=== PATIENT | male | born 1945 | race African-American/Black ===

== ENCOUNTER 2016-07-15 22:47 | Inpatient (IN) | payer MEDICARE, MEDICAID ==
[~2016-07-15] VITALS: Ht 177.8 cm; Wt 89.8 kg
--- NOTE | 2016-07-15 22:50 | NUR ---
PT ARRIVED BY PA WITH A C/O AGGRESSIVE BEHAVIOR PHYSICAL CHEMISTRY TEACHER, SPITTING ON STAFF AT SNF. 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 PT WENT TO BED #10.
[2016-07-15 23:16] LABS: EOSINOPHILS # (AUTO) 0.5 /CMM (0.0-0.7); EOSINOPHILS % (AUTO) 3.7 % (0.0-6.0); HEMATOCRIT 44 % (39-51); HEMOGLOBIN 14.7 g/dL (13.5-17.5); LYMPHOCYTES # (AUTO) 1.3 /CMM (0.8-4.8); LYMPHOCYTES % (AUTO) 9.7 % (20.0-44.0); MEAN CORPUSCULAR HEMOGLOBIN 26 PG (26.0-33.0); MEAN CORPUSCULAR HGB CONC 34 g/dl (31.0-36.0); MEAN CORPUSCULAR VOLUME 77 fL (80-96); MONOCYTES # (AUTO) 0.9 /CMM (0.1-1.30); MONOCYTES % (AUTO) 6.7 % (2.0-12.0); NEUTROPHILS % (AUTO) 79.9 % (43.0-81.0); PLATELET COUNT (AUTO) 311 /CMM (150-450); RDW COEFFICIENT OF VARIATION 15.2 (11.5-15.0); RED BLOOD CELL COUNT(AUTO) 5.65 MIL/uL (4.5-6.0); WHITE BLOOD COUNT (AUTO) 13.8 K/uL (4.3-11.0)
[2016-07-15] MEDS ORDERED: WATER FOR INJECTION,STERILE 10 ML ONE (23:25)
[2016-07-15] MEDS ORDERED: OLANZAPINE 10 MG VIAL IM ONE ×2 (23:25→23:30)
[2016-07-15 23:26] LABS: CALCIUM, SERUM 9.3 mg/dL (8.5-10.1); CARBON DIOXIDE 26 mmol/L (21-32); CHLORIDE 100 mmol/L (98-107); CREATININE 1.3 mg/dL (0.6-1.3); GFR 66 mL/min (>60); GLUCOSE 208 mg/dL (74-106); POTASSIUM 4.1 mmol/L (3.5-5.1); SODIUM SERUM 134 mmol/L (136-145); UREA NITROGEN, BLOOD 23 mg/dL (7-18)
--- NOTE | 2016-07-15 23:26 | NUR ---
URINE SAMPLE OBTAINED VIA URINAL.
--- NOTE | 2016-07-15 23:27 | NUR ---
REPORT GIVEN TO DORA JOHNSON/DION FOR JANET.
--- NOTE | 2016-07-15 23:27 | NUR ---
LABS DRAWN AND SENT TO LAB.
[2016-07-15 23:31] LABS: ALANINE AMINOTRANSFERASE 36 U/L (12-78); ALBUMIN 3.6 g/dL (3.4-5.0); ALKALINE PHOSPHATASE 108 U/L (46-116); ASPARTATE AMINOTRANSFERASE 20 U/L (15-37); BILIRUBIN,DIRECT 0.1 mg/dL (0.0-0.2); BILIRUBIN,TOTAL 0.8 mg/dL (0.2-1.0); TOTAL PROTEIN, SERUM 8.2 g/dL (6.4-8.2)
[2016-07-15] MEDS ORDERED: METF500T4 PO (23:31)
[2016-07-15] MEDS ORDERED: VALS160T24 PO (23:31)
[2016-07-15] MEDS ORDERED: ZOLP5TAB2 PO (23:31)
[2016-07-15] MEDS ORDERED: ACET325T53 PO (23:31)
[2016-07-15] MEDS ORDERED: GLUC1VIA IM (23:31)
[2016-07-15] MEDS ORDERED: GLIM2TAB2 PO (23:31)
[2016-07-15 23:35] LABS: ACETAMINOPHEN 0 ug/ml (10-30); ALCOHOL, BLOOD < 3 mg/dL (0-0); SALICYLATE 0.4 mg/dL (2.8-20.0)
[2016-07-15 23:37] LABS: APPEARANCE,URINE CLEAR (CLEAR); BILIRUBIN,URINE 1+ (NEGATIVE); BLOOD, URINE TRACE Ery/uL (NEGATIVE); COLOR,URINE YELLOW (YELLOW); KETONES,URINE NEGATIVE (NEGATIVE); LEUKOCYTE ESTERASE ,URINE NEGATIVE (NEGATIVE); NITRITE, URINE NEGATIVE (NEGATIVE); PROTEIN,URINE 2+ mg/dl (NEGATIVE); UGLUCOSE NEGATIVE (NEGATIVE)
[2016-07-15] MEDS ORDERED: FERR325T22 PO (23:37)
[2016-07-15] MEDS ORDERED: TRAM50TA2 PO (23:37)
[2016-07-15] MEDS ORDERED: BISA-79 PO (23:37)
[2016-07-15] MEDS ORDERED: MAGN2400 PO (23:37)
[2016-07-15 23:41] LABS: CANNABINOID, URINE NEGATIVE (NEGATIVE); PHENCYCLIDINE SCREEN,URINE NEGATIVE (NEGATIVE)
[2016-07-15 23:45] LABS: ADD URINE CULTURE NO; BACTERIA,URINE None seen /HPF (None Seen); RBC,URINE 0-2 /HPF (0-2); SQUAMOUS EPITHELIAL CELL,UR Rare /HPF (None Seen); WBC,URINE 0-2 /HPF (0-3)
--- NOTE | 2016-07-15 23:45 | NUR ---
GPS/RN NOTE: PATIENT ADMITTED DIRECTLY FROM [facility] FOR 5150 HOLD FOR GD. CAME TO THE UNIT AROUND 2345 ACCOMPANIED BY PARAMEDICS VIA GURNEY. PER HOLD PATIENT HAS BEEN REFUSING TREATMENT AND SHOWERS, AGGRESSIVE TO STAFF AND PEERS. THE 5150 HOLD WAS REVIEWED, AND APPEARS TO REFLECT THE PRESENTATION OF THE PATIENT. STRIKING OUT AT [facility]ERS AND STAFF AT THE FACILITY WITH HIS CANE. VERBALLY AGGRESSIVE, REFUSING TREATMENT ON HIS LEGS AND REFUSED CARE AND HAD BEEN NON COMPLIANT WITH MEDICATIONS. PATIENT IS AWAKE, ALERT, LETHARGIC, CONFUSED, RESPONDS WHEN ENGAGED. NO S/S OFR COMPLAINTS AT THIS TIME. COMFORTALE, RESPIRATION EVEN, BREATHING PATTERN NON-LABORED, WITH EQUAL RISE AND FALL OF THE CHEST. BOTH LEGS ARE SWOLLEN, +3, NON PITTING AND KEPT ELEVATED WITH PILLOWS. PATIENT IS UNDER THE PSYCHIATRIC CARE OF DR. AMRIEE AND UNDER THE MEDICAL CARE OF DR. THOMPSON. BELONGINGS WERE INVENTORIED AND CHECKED FOR CONTRABAND. ADVANCED DIRECTIVE PREFERENCE, IMMUNIZATION QUESTIONNAIRE, MED-RECON, VALUABLES WERE CHECKED IN TO SAFE. AND NECESSARY PAPERWORK COMPLETED. PATIENT BED LOCKED AND PLACED ON LOWEST POSITION. WILL CONTINUE TO MONITOR Q 15 MINS. TO MAINTAIN SAFETY.
[2016-07-15 23:46] LABS: HYALINE CASTS, URINE Few /LPF (None Seen); MUCUS,URINE Few /LPF (None Seen)
--- NOTE | 2016-07-15 23:51 | NUR ---
REPORT GIVEN TO BERENICE JOHN FOR CONTINUATION OF CARE.
[2016-07-16] MEDS ORDERED: GLUCAGON,HUMAN RECOMBINANT 1 MG/VIAL VIAL IM PRN (00:30)
[2016-07-16] MEDS ORDERED: ZOLPIDEM TARTRATE 5 MG TABLET PO PRN ×2 (00:30→01:00)
[2016-07-16] MEDS ORDERED: BISACODYL (5 MG) 5 MG TABLET.DR PO PRN (00:30)
[2016-07-16] MEDS ORDERED: TRAMADOL HCL 50 MG TABLET PO PRN ×2 (00:30)
--- NOTE | 2016-07-16 00:30 | NUR ---
PT TRANSFERED TO [facility]IA TOO.
[2016-07-16] MEDS ORDERED: MAGNESIUM HYDROXIDE 30 ML UDC PO PRN (01:00)
[2016-07-16] MEDS ORDERED: MAG HYDROX/AL HYDROX/SIMETH 30 ML UDC PO PRN (01:00)
[2016-07-16] MEDS ORDERED: ACETAMINOPHEN 325 MG TABLET PO PRN (01:00)
--- NOTE | 2016-07-16 05:58 | NUR ---
GPS/RN NOTE: PATIENT JUST WOKE UP, STARTED YELLING VERY LOUD, SCREAMING, VERRBALLY ABUSIVE, SAYING THE "F" WORD. VERY DEMANDING, REQUESTING FOR A LOT OF THINGS LIKE, DRINKS, SANDWICH, BLANKET. PATIENT VERY INSULTING, CALLING NAME, " HEY YOU LADY COME HER, WHAT'S YOUR NAME?, I NEED TO TALK TO YOUR SURGICAL SERVICES MANAGER, DO YOU HAVE AN OMBUDSMAN HERE? DO YOU KNOW WHAT OMBUDSMAN IS? " I AM NOT AN ANIMAL, I AM A HUMAN BEING." " I AM TREATED LIKE AN ANIMAL HERE." PATIENT CONTINUOUSLY YELLING, '' NURSE, NURSE NURSE, MANY TIMES" CONTINUOUSLY PRESSING HIS CALL KHAN SEVERAL TIMES. EXPLAINED TO HIM THAT HE CAN ASK FOR HIS NEEDS AND CONCERNS, SHOWED HIM HOW TO USE CALL LIGHT. PATIENT GETS SARCASTIC, " AM A DISABLED PERSON." GAVE HIM WHAT HE REQUESTED, GOWN, BLANKET. PATIENT REMAINED YELLING AND SCREAMING VERY LOUD. WILL CONTINUE TO MONITOR Q 15 MINS. TO MAINTAIN SAFETY. CHARGE NURSE AWARE OF PATIENT'S BEHAVIOR.
[2016-07-16] MEDS ORDERED: LORAZEPAM 0.5 MG TABLET ONE (06:08)
--- NOTE | 2016-07-16 06:14 | NUR ---
GPS/RN NOTE: PATIENT STILL YELLING, AGITATED, SCREAMING. VERBALLY ABUSIVE OFFERED ATIVAN 0.5 MG 1 TAB PO, PATIENT SCREAMED," F YOU AND YOUR MEDICATION."
--- NOTE | 2016-07-16 06:18 | NUR ---
GPS/RN NOTE: WHILE MERGERS AND ACQUISITIONS MANAGER ASSIGNED WAS CLEANING AND CHANGING HIS DIAPER, PATIENT STATED," COME PUT YOUR FINGER IN MY ASS."
--- NOTE | 2016-07-16 06:20 | NUR ---
GPS/RN NOTE: PATIENT REFUSED MRSA SCREEN, STATED, " F YOU."
--- NOTE | 2016-07-16 06:22 | NUR ---
GPS/RN NOTE: PATIENT FURTHER SKIN ASSESSMENT NOW, VERBALLY ABUSIVE, VERY UNCOOPERATIVE.
[2016-07-16] MEDS ORDERED: ACETAMINOPHEN 325 MG TABLET PO SCH (07:30)
[2016-07-16 07:34] LABS: CHOLESTEROL 179 mg/dL (<200); HDL CHOLESTEROL 33 mg/dL (40-60); LDL 132 mg/dL (0-99); TRIGLYCERIDES 88 mg/dL (30-150)
[2016-07-16 08:00] VITALS: BP 139/89
--- NOTE | 2016-07-16 08:00 | NUR ---
GPS/RN AM NOTES PATIENT ADMITTED DIRECTLY FROM [facility] FOR 5150 HOLD FOR GD. AGGRESSIVE TO STAFF AND PEERS. THE 5150 HOLD WAS REVIEWED, AND APPEARS TO REFLECT THE PRESENTATION OF THE PATIENT.WITH HX OF STRIKING OUT AT PEERS AND STAFF AT THE FACILITY WITH HIS CANE. VERBALLY AGGRESSIVE, REFUSING TREATMENT ON HIS LEGS AND REFUSED CARE AND HAD BEEN NON COMPLIANT WITH MEDICATIONS. PATIENT IS AWAKE, ALERT, LETHARGIC, CONFUSED, RESPONDS WHEN ENGAGED BUT CUSSES A LOT.EXPRESSES HIS FRUSTRATIONS.ATTENTION SEEKER .ACTIVE LISTENING PROVIDED SEVERAL TIMES. NO S/S OF COMPLAINTS AT THIS TIME. COMFORTABLE, RESPIRATION EVEN, BREATHING PATTERN NON-LABORED, WITH EQUAL RISE AND FALL OF THE CHEST. BOTH LEGS ARE SWOLLEN, +3, NON PITTING AND KEPT ELEVATED WITH PILLOWS.ENCOURAGED TO TURN EVERY TWO HRS BUT PT IS NON COMPLIANT WITH MEDS AND BEING TURNED INSPITE OF EXPLAINING ITS RISKS AND BENEFITS.
--- NOTE | 2016-07-16 08:30 | NUR ---
PT REFUSED HIS ORAL MEDS INSPITE OF EXPLAINING ITS RISKS AND BENEFITS.PT CUSSES AND WANTED TO SEE THE PLATE ROLLERMYRNA INSTRUMENT LENS INSPECTOR,TOP DAIRY CATTLE FARM MANAGER OF THE HOSPITAL,ABRAHANRN,ADMISSIONS ASSISTANT (EVEN IF I ALREADY HAVE INTRODUCED MYSELF TO HIM).
[2016-07-16] MEDS: GLIMEPIRIDE 1 MG TABLET PO SCH ×2 (08:57→09:00)
[2016-07-16] MEDS: METFORMIN 500 MG TABLET PO SCH ×3 (08:58→16:54)
[2016-07-16] MEDS: LORAZEPAM 0.5 MG TABLET PO PRN ×2 (08:58→10:18)
[2016-07-16] MEDS: VALSARTAN 80 MG TABLET PO SCH ×2 (08:58→09:00)
[2016-07-16] MEDS ORDERED: FERROUS GLUCONATE 1 EA TABLET PO SCH (09:00)
[2016-07-16] MEDS ORDERED: OLANZAPINE 10 MG VIAL IM ONE (13:00)
--- NOTE | 2016-07-16 13:00 | NUR ---
GPS RN: PATIENT IS VERBALLY ABUSIVE, AGITATED, UNCOOPERATIVE, YELLING PROFANITIES, NAKED, THREATENING THE PHYSICIAN. NEW ORDER RECEIVED FROM DR. MARIEE: ZYPREXA 5MG IM ONCE.
--- NOTE | 2016-07-16 13:30 | NUR ---
TRIED TO CALL PT'S FAMILY,BHUPENDRA VEE 3 ATTEMPTS BUT TO NO AVAIL.
--- NOTE | 2016-07-16 14:00 | NUR ---
PT WOKE UP AGITATED,IRRITABLE THROWING HIS SHEET ON THE FLOOR ANS STARTED CUSSING WHEN IT WAS PICKED UP.EXPLAINED AND TRIED TO CLEAN UP PT'S TRASH IN HIS BED AND PT STARTED CUSSING AGAIN.CALLED FOR ASSISTANCE WITH MIC,GPS ELECTRONIC IMAGING SYSTEM OPERATOR AND OTHER STAFF TO TALK TO THE PT.
--- NOTE | 2016-07-16 14:39 | NUR ---
SW attempted to do an assessment with the patient but pt. is verbally aggressive and is cursing. SW is unable to do an assessment at this time. Will attempt again later.
--- NOTE | 2016-07-16 14:42 | NUR ---
Initial discharge plan: [facility] [address] [place] [id number] and per GG from [facility] intake, facility signed a letter agreeing to take the patient back. SW contacted the facility and per Albert from admission pt. is able to return. CYRUS will follow up with MD and pt. and will help form safe and proper discharge.
--- NOTE | 2016-07-16 16:00 | NUR ---
PT CONTINUES TO CALL STAFF WITH BAD NAMES E.G. PORKY PIG AND EVEN MAKES FALSE ACCUSATIONS LIKE POINTING BAD FINGER TO HIM AND TELLING HIM LIES.MIC,GPS ACTIVITY THERAPIST TRIED TO TALK TO THE PT TO PACIFY THE PT BUT PT CONTINUES TO BE IRRITABLE AND AGITATED CUSSING THE STAFF. Addendum: 07/16/16 at 1842 by JOHANNA IRELAND RN PT CONTINUES TO BE VERBALLY ABUSIVE,THREATENING STAFF,FALSELY ACCUSED STAFF,SCREAMING AND CURSING STAFF.WAS ABLE TO ADMINISTER ZYPREXA 5 MG IM.
--- NOTE | 2016-07-16 17:00 | NUR ---
PT IS CALMLY SLEEPING WITH NO S/S OF DISTRESS OR DISCOMFORT.WILL CONTINUE TO MONITOR.
--- NOTE | 2016-07-16 18:30 | NUR ---
PT WAS CALLING FOR HELP AND WHEN ATTENDED TO-PT WAS CUSSING,"YOU F------ BITCH!" CONTINUOUSLY WITHOUT TELLING THE UNDERSIGNED WHAT HE NEEDS,APPROACHED BY CHARGE NURSE AND PLACED HIS DINNER TRAY IN FRONT OF THE PT.PT CONTINUED TO CUSS,"YOU F----- BITCH!"LEFT THE ROOM AND WILL MONITOR.
[2016-07-16] MEDS ORDERED: LORAZEPAM 0.5 MG TABLET PO PRN (19:00)
[2016-07-16] MEDS: OLANZAPINE 5 MG/TAB.RAPDIS PO SCH (21:00)
--- NOTE | 2016-07-16 22:02 | NUR ---
GPS/LINE SERVICE SUPERVISOR NOTES: PT. REFUSED VITAL SIGNS AND HS MEDS. OFFERED 3X. EXPLAINED RISK AND BENEFITS. PT. STILL REFUSED. WILL CONTINUE TO MONITOR.
[2016-07-17 08:47] VITALS: BP 138/80
[2016-07-17] MEDS: VALSARTAN 80 MG TABLET PO SCH (08:54)
[2016-07-17] MEDS: METFORMIN 500 MG TABLET PO SCH ×2 (08:54→17:00)
[2016-07-17] MEDS: FERROUS SULFATE (325 MG) 325 MG/TAB TABLET PO SCH (08:54)
[2016-07-17] MEDS: GLIMEPIRIDE 1 MG TABLET PO SCH (08:54)
[2016-07-17] MEDS: OLANZAPINE 5 MG/TAB.RAPDIS PO SCH ×2 (08:55→21:00)
--- NOTE | 2016-07-17 08:55 | NUR ---
GPS/RN PT. REFUSED AM MEDS AND BLOOD DRAW. OFFERED 3X. EXPLAINED RISK AND BENEFITS. PT. STILL REFUSED. WILL CONTINUE TO MONITOR.
--- NOTE | 2016-07-17 09:55 | NUR ---
RN-CO: Dr. Navarro seen and examined patient in his room with 2 staff. Patient was naked and refused to cover himself. Patient yelled and cussed Dr Navarro and the staff. " SON of a b%*%#.!" Charge nurse offered to give Ativan po but he refused. Dr Navarro ordered Zyprexa 10 mg IM STAT. Patient remained agitated for no reason.
[2016-07-17] MEDS ORDERED: OLANZAPINE 10 MG VIAL IM STA (10:00)
--- NOTE | 2016-07-17 10:15 | NUR ---
RN-CO: ZYPREXA 10 MG IM GIVEN ON LEFT DELTOID AREA. PER PATIENT PREFERENCE.WILL MONITOR. PATIENT REFUSED VITAL SIGNS, AND FOOD AND FLUIDS.
--- NOTE | 2016-07-17 13:34 | NUR ---
Recreation Therapy Note: Pt. has minimal participation in activity program. Patient talks 1:1 with Recreation therapy about his college fraternity, black history, and civil rights interests. Patient regularly uses profanity, and interrupts staff when they try to perform regular check-ups (i.e. vital signs, rounds). RTC has sought to do reality orientation, and calm patient through discussion of his leisure interests. Pt. has been verbally abusive to nursing staff and medical center director.
[2016-07-17 16:28] VITALS: BP 129/77
--- NOTE | 2016-07-17 19:30 | NUR ---
PS RN NOTE, RECEIVED PATIENT AWAKE AND IN BED, NO S/S OR COMPLAINTS OF PAIN AT THIS TIME. PATIENT IS DISPLAYING NO S/S OF APPARENT DISTRESS AT THIS TIME. PATIENT BREATHING IS UNLABORED WITH EQUAL RISE AND FALL OF THE CHEST. PATIENT IS ALERT AND ORIENTED X 2 ON ROOM AIR WITH A SPO2 93%. PATIENT COMPLIANT WITH MEDICATIONS, ANXIOUS, HYPERVERBAL, DISORGANIZED, CONFUSED AT TIMES, AND NEEDS REORIENTATION. PATIENT DENIES SUICIDE AND HOMICIDAL IDEATIONS AT THIS TIME. PATIENT ASSISTED WITH TURNING AND REPOSITIONING Q2HR AND PRN FOR COMFORT AND CIRCULATION. PATIENT HAS NO NEEDS AT THIS TIME. PATIENT REFUSED SKIN ASSESSMENT TODAY. PATIENT EDUCATED ON THE USE OF THE CALL KHAN. PATIENT BED SIDE RAILS UP X2 FOR SAFETY, BED IS LOCKED AND LOW WILL CONTINUE TO MONITOR AND MAINTAIN SAFETY.
[2016-07-17 20:17] VITALS: BP 167/101
--- NOTE | 2016-07-17 21:00 | NUR ---
GPS RN NOTE, PATIENT REFUSED TO TAKE ZYPREXA 5MG PO Q12HR. OFFERED MEDICATION THREE TIMES AND STILL PATIENT REFUSED STATING, " I DON'T TAKE THOSE FUCKING MEDICATIONS AND I HAVE NEVER TAKEN THOSE MEDICATIONS BEFORE ". EDUCATED THE PATIENT ON THE RISKS AND BENEFITS OF TAKING AND REFUSING AFOREMENTIONED MEDICATION. WILL CONTINUE TO MONITOR THIS PATIENT.
--- NOTE | 2016-07-18 06:00 | NUR ---
RN NOTE PT REFUSED TO BE CLEANED DESPITE ENCOURAGEMENT AND TEACHING
[2016-07-18 08:32] VITALS: BP 150/98
[2016-07-18] MEDS: GLIMEPIRIDE 1 MG TABLET PO SCH (09:00)
[2016-07-18] MEDS: METFORMIN 500 MG TABLET PO SCH ×2 (09:00→17:00)
[2016-07-18] MEDS: OLANZAPINE 5 MG/TAB.RAPDIS PO SCH ×3 (09:00→17:00)
[2016-07-18] MEDS: FERROUS SULFATE (325 MG) 325 MG/TAB TABLET PO SCH (09:00)
[2016-07-18] MEDS: VALSARTAN 80 MG TABLET PO SCH (09:00)
[2016-07-18 16:04] VITALS: BP 152/100
--- NOTE | 2016-07-18 18:21 | NUR ---
PATIENT A/O X2/3, CONFUSED, DEMANDING, REFUSED 0900, 1700 MEDICATION, V/S TAKEN STABLE, VERBALLY ABUSIVE, HARD TO FOLLOW DIRECTION, PATIENT CONCENTRATED GOING HOME, CONTINUED MONITORING. ENDORSED ONCOMING NURSE FOR CONTINUATION OF CARE.
[2016-07-18 19:59] VITALS: BP 151/100
[2016-07-19 08:00] VITALS: BP 139/91
[2016-07-19] MEDS: METFORMIN 500 MG TABLET PO SCH ×2 (09:00→17:00)
[2016-07-19] MEDS: OLANZAPINE 5 MG/TAB.RAPDIS PO SCH ×3 (09:00→17:00)
[2016-07-19] MEDS: GLIMEPIRIDE 1 MG TABLET PO SCH (09:00)
[2016-07-19] MEDS: VALSARTAN 80 MG TABLET PO SCH (09:00)
[2016-07-19] MEDS: FERROUS SULFATE (325 MG) 325 MG/TAB TABLET PO SCH (09:00)
[2016-07-19 16:00] VITALS: BP 143/87
--- NOTE | 2016-07-19 20:00 | NUR ---
GPS OPENING NOTES RECEIVED Pt AWAKE, RESTING IN BED.REFUSING TO TAKE ANY MEDS. NO S/S OF ACUTE DISTRESS OR SOB NOTED. Pt BREATHING IS UNLABORED WITH EQUAL RISE AND FALL OF THE CHEST. NO SIGNS OF PAIN NOTED AT THIS TIME. Pt IS A/OX2, CONFUSED, VERBAL, ABLE TO MAKE NEEDS KNOWN. SAFETY MEASURES IN PLACE. BED LOW, LOCKED, HOB ELEVATED, & SIDE RAILS UP. WILL CONTINUE TO MONITOR Pt THROUGHOUT THE NIGHT AND MAINTAIN SAFETY.
[2016-07-19 20:14] VITALS: BP 132/89
--- NOTE | 2016-07-19 20:50 | NUR ---
PT REFUSING MEDS.
--- NOTE | 2016-07-20 06:55 | NUR ---
RN CLOSING NOTES NO SIGNIFICANT CHANGES. NO S/S OF ACUTE DISTRESS OR SOB NOTED DURING THE NIGHT. ALL SAFETY MEASURES CARRIED OUT. ALL NEEDS MET AND ATTENDED TO. WILL ENDORSE TO DAYSHIFT RN FOR Pt's JANET.
[2016-07-20 08:00] VITALS: BP 124/74
[2016-07-20] MEDS: VALSARTAN 80 MG TABLET PO SCH (09:00)
[2016-07-20] MEDS: METFORMIN 500 MG TABLET PO SCH ×2 (09:00→17:00)
[2016-07-20] MEDS: GLIMEPIRIDE 1 MG TABLET PO SCH (09:00)
[2016-07-20] MEDS: FERROUS SULFATE (325 MG) 325 MG/TAB TABLET PO SCH (09:00)
[2016-07-20] MEDS: OLANZAPINE 5 MG/TAB.RAPDIS PO SCH ×3 (09:00→17:00)
--- NOTE | 2016-07-20 10:22 | NUR ---
RN-CO: PT REFUSED MRSA SWAB, BECAME VERBALLY ABUSIVE AND CURSED THE STAFF"BITCH!"
--- NOTE | 2016-07-20 15:11 | NUR ---
CYRUS received a voicemail from Shira from [facility] [address], [place], [place] [id number] who was concerned as pt. called and told her he will be going there to pickling operator his stuff. CYRUS called Shira back and reassured her that pt. is not ready for discharge and will not be discharged there without a notice.
--- NOTE | 2016-07-20 15:12 | NUR ---
SW received a voicemail from pt's sister, Marilu Arredondo, , who stated that pt. requested money from her but she was unable to understand most of the voicemail left by the patient. SW attempted to call the sister back, but unable to reach her at this time. Will try again later.
[2016-07-20] MEDS ORDERED: OLANZAPINE 10 MG VIAL IM ONE (15:35)
--- NOTE | 2016-07-20 16:47 | NUR ---
PATIENT RECEIVED CHEMICAL RESTRAINT DUE TO POSING DANGER TO OTHERS BY BEING AGITATED AND AGGRESSIVE WITH HIGH POTENTIAL FOR VIOLENCE WITH THREATING STAFF PHYSICAL HARM TO ENVIRONMENT BY THROWING URINAL FILLED WITH URINE AND THE FOOD TRAY. PATIENT REFUSED P.O. ATIVAN. CALLED MD FOR ZYPREXA 10MG IM STAT TIMES ONE WITH GOOD EFFECT AFTER 10 MINUTES, PATIENT ON Q 15 MINUTE CHECK. CONTINUE TO MONITOR.
--- NOTE | 2016-07-20 19:20 | NUR ---
RN OPENING NOTES: PATIENT IN ROOM IN BED AWAKE, INCESSANTLY SHOUTING AND BANGING HAND ON HIS SIDE RAIL CALLING OUT VULGAR PROFANITIES AND VERBALLY AGGRESSIVE TOWARD STAFF. UNABLE TO REDIRECT BEHAVIOR. PATIENT REFUSES CARE AND TREATMENT AND IS COMBATIVE IF ATTEMPTED. NO ACTIVE PLANS OF SI/HI AND WITH WEAKNESS ON LOWER EXTREMITIES. SAFETY CHECKS DONE Q15. TO ATTEMPT TO RENDER SKIN CARE. MONITORED FOR ESCALATION OF BEHAVIOR.
[2016-07-20 19:48] VITALS: BP 154/90
--- NOTE | 2016-07-20 21:50 | NUR ---
RN NOTES: PATIENT HAS BEEN PERSISTENTLY VERBALLY AGGRESSIVE AND DISRUPTIVE. PATIENT CONTINUED TO SHOUT INCESSANTLY, BANGS ON THE SIDERAILS AND SCREAMS VULGAR AND INAPPROPRIATE COMMENTS. PATIENT REFUSES CARE, REFUSED TO BE CLEANED AND BECOMES COMBATIVE TOWARDS STAFF. OTHER PATIENTS ARE ALREADY COMPLAINING ABOUT THE NOISE HE HAS BEEN MAKING AND DISRUPTS OTHER PEOPLE'S REST PERIODS. RELAYED PATIENT'S CURRENT BEHAVIOR TO DR. KODI MD WITH ORDERS FOR HALDOL AND BENADRYL 0.5MG IM. 2202 PATIENT APPROACHED IN A CALM AND NON THREATENING MANNER KEEPING DISTANCE ACCOMPANIED BY OTHER STAFF MEMBERS AND MALE YARN COMBER'S. EXPLAINED TO PATIENT ABOUT THE MEDICATION TO BE GIVEN AND THE REASON WHY IT IS BEING GIVEN. PATIENT WAS RECEPTIVE AND AGREEABLE TO THE MED AT THIS TIME. MEDICATION GIVEN. MONITORED CONTINUOUSLY
[2016-07-20] MEDS ORDERED: HALOPERIDOL LACTATE INJ 5 MG/ML VIAL ONE (21:56)
[2016-07-20] MEDS ORDERED: diphenhydrAMINE HCL 50 MG/ML VIAL ONE (21:57)
[2016-07-20] MEDS ORDERED: diphenhydrAMINE HCL 50 MG/ML VIAL IM ONE (22:00)
[2016-07-20] MEDS ORDERED: HALOPERIDOL LACTATE INJ 5 MG/ML VIAL IM ONE (22:00)
--- NOTE | 2016-07-20 22:15 | NUR ---
RN NOTES: PT NOTED TO STILL BE VERBALLY DISRUPTIVE AND SCREAMING. CONTINUOUSLY MONITORED FOR EFFECTS OF MEDICATION TO PT.
[2016-07-21 08:00] VITALS: BP 159/96
[2016-07-21] MEDS: GLIMEPIRIDE 1 MG TABLET PO SCH (08:21)
[2016-07-21] MEDS: FERROUS SULFATE (325 MG) 325 MG/TAB TABLET PO SCH (08:22)
[2016-07-21] MEDS: VALSARTAN 80 MG TABLET PO SCH (08:22)
[2016-07-21] MEDS: METFORMIN 500 MG TABLET PO SCH ×2 (08:22→17:00)
[2016-07-21] MEDS: OLANZAPINE 5 MG/TAB.RAPDIS PO SCH (08:23)
--- NOTE | 2016-07-21 08:25 | NUR ---
REFUSED AM MEDS AND AM LAB THIS MORNING.
[2016-07-21] MEDS ORDERED: diphenhydrAMINE HCL 50 MG/ML VIAL IM PRN (10:30)
[2016-07-21] MEDS: BENZTROPINE MESYLATE (1 MG) 1 MG TABLET PO SCH ×3 (10:57→18:32)
--- NOTE | 2016-07-21 11:30 | NUR ---
PT. HAD HEARING AND REISED HALDOL AND COGENTIN ORDERED AND PT. COMPLIANT.
[2016-07-21] MEDS ORDERED: HALOPERIDOL LACTATE INJ 5 MG/ML VIAL IM PRN (13:00)
[2016-07-21] MEDS: HALOPERIDOL 5 MG TABLET PO SCH ×2 (14:37→18:32)
[2016-07-21 16:00] VITALS: BP 145/93
--- NOTE | 2016-07-21 18:00 | NUR ---
REMY DIOR MEMO.
--- NOTE | 2016-07-21 18:30 | NUR ---
URINE CULTURE SENT.
[2016-07-21 20:21] VITALS: BP 160/89
[2016-07-22 08:00] VITALS: BP 163/103
[2016-07-22] MEDS: BENZTROPINE MESYLATE (1 MG) 1 MG TABLET PO SCH ×2 (08:26→16:22)
[2016-07-22] MEDS: GLIMEPIRIDE 1 MG TABLET PO SCH (08:27)
[2016-07-22] MEDS: VALSARTAN 80 MG TABLET PO SCH (08:27)
[2016-07-22] MEDS: HALOPERIDOL 5 MG TABLET PO SCH ×4 (08:27→22:54)
[2016-07-22] MEDS: FERROUS SULFATE (325 MG) 325 MG/TAB TABLET PO SCH (08:28)
[2016-07-22] MEDS: METFORMIN 500 MG TABLET PO SCH ×2 (08:28→16:23)
--- NOTE | 2016-07-22 10:28 | NUR ---
GPS RN NOTE: PT AWAKE IN BED.REFUSING TO TAKE AM MEDICATIONS TOOK PO COGENTIN AND HALDOL, PT RIESED. PT BP 163/103 P 96 EXPLAIN PT RISK REFUSING MEDICATIONS PT CONTINUE REFUSING BP MEDS.AND STATED " I DONT NEED THIS MEDICATIONS IM STRONG MAN " PT REFUSED SKIN BODY CHECK DENIES PAIN AT THIS TIME. BED LOW, LOCKED, HOB ELEVATED, & SIDE RAILS UP. WILL CONTINUE TO MONITOR FOR SAFETY AND BEHAVIOR Q 15 MIN
[2016-07-22] MEDS ORDERED: HALOPERIDOL LACTATE INJ 5 MG/ML VIAL IM PRN (13:00)
[2016-07-22] MEDS ORDERED: diphenhydrAMINE HCL 50 MG/ML VIAL IM PRN (13:00)
[2016-07-22 16:00] VITALS: BP 125/94
[2016-07-22 20:00] VITALS: BP 121/60
[2016-07-22 20:39] VITALS: BP 121/60
[2016-07-23 08:00] VITALS: BP 152/98
[2016-07-23] MEDS: HALOPERIDOL 5 MG TABLET PO SCH ×4 (08:32→22:37)
[2016-07-23] MEDS: GLIMEPIRIDE 1 MG TABLET PO SCH (08:33)
[2016-07-23] MEDS: BENZTROPINE MESYLATE (1 MG) 1 MG TABLET PO SCH ×2 (08:33→17:00)
[2016-07-23] MEDS: METFORMIN 500 MG TABLET PO SCH ×2 (08:34→17:00)
[2016-07-23] MEDS: FERROUS SULFATE (325 MG) 325 MG/TAB TABLET PO SCH (08:34)
[2016-07-23] MEDS: VALSARTAN 80 MG TABLET PO SCH (08:34)
--- NOTE | 2016-07-23 09:00 | NUR ---
gps/rn Patient refused all 0900 medications except Haldol PO, explained risks and benefits, will continue to encourage to comply with MD regimen.
[2016-07-23] MEDS ORDERED: HALOPERIDOL DECANOATE IM 100 MG/ML AMPUL IM ONE (12:00)
--- NOTE | 2016-07-23 15:54 | NUR ---
GPS/RN ADMINISTERED HALDOL DECANOATE INJECTION ORDERED, SCANNED MEDICATION BUT SYSTEM SAID IT WAS TIMED OUT AND DID NOT SAVE INFORMATION.
[2016-07-23 16:06] VITALS: BP 149/76
[2016-07-23 20:00] VITALS: BP 145/79
--- NOTE | 2016-07-23 22:30 | NUR ---
RN OPENING NOTES RECEIVED REPORT FROM RNJOSE ALFREDO. Pt IS AWAKE, RESTING IN BED. Pt IS A/OX2, CONFUSED, ON BR, VERBALLY ABUSIVE TO STAFF, REFUSES MOST MEDS EXCEPT HALDOL. TOOK HALDOL 2.5MG PO @2230. NO S/S OF ACUTE DISTRESS OR SOB NOTED. REGULAR BREATHING WITH EQUAL CHEST RISE & FALL. SAFETY MEASURES IN PLACE. BED LOW, LOCKED, HOB ELEVATED, SIDE RAILS UP. WILL CONTINUE TO MONITOR Pt THROUGHOUT THE NIGHT FOR SAFETY.
--- NOTE | 2016-07-24 06:45 | NUR ---
RN CLOSING NOTES NO SIGNIFICANT CHANGES DURING THE NIGHT. NO S/S OF ACUTE DISTRESS OR SOB NOTED DURING THE SHIFT. ALL NEEDS MET AND ATTENDED TO. SAFETY MEASURES CARRIED OUT. WILL ENDORSE TO DAYSHIFT RN FOR Pt's JANET AND SAFETY.
[2016-07-24 08:00] VITALS: BP 150/90
[2016-07-24] MEDS: HALOPERIDOL 5 MG TABLET PO SCH ×4 (08:21→21:35)
[2016-07-24] MEDS: GLIMEPIRIDE 1 MG TABLET PO SCH (08:22)
[2016-07-24] MEDS: VALSARTAN 80 MG TABLET PO SCH (08:22)
[2016-07-24] MEDS: FERROUS SULFATE (325 MG) 325 MG/TAB TABLET PO SCH (08:22)
[2016-07-24] MEDS: BENZTROPINE MESYLATE (1 MG) 1 MG TABLET PO SCH ×2 (08:22→16:38)
[2016-07-24] MEDS: METFORMIN 500 MG TABLET PO SCH ×2 (08:22→16:38)
--- NOTE | 2016-07-24 09:00 | NUR ---
gps type soldering machine tender: notes pt verbally abusive, cursing, and with inappropriate behavior. pt still refuses his meds except for haldol 2.5mg po. reality orientation provided prn. pt still wearing his own clothes, pt refuses skin assessment. denies any discomfort. will continue to monitor.
--- NOTE | 2016-07-24 12:30 | NUR ---
gps english adjunct faculty: notes pt verbally abusive, cursing, and with inappropriate behavior. pt still refuses his meds except for haldol 2.5mg po. reality orientation provided prn. pt still wearing his own clothes, pt still refuses skin assessment. will continue to monitor.
[2016-07-24 16:03] VITALS: BP 147/96
[2016-07-24 20:00] VITALS: BP 150/88
[2016-07-25 07:55] VITALS: BP 140/80
[2016-07-25] MEDS: METFORMIN 500 MG TABLET PO SCH ×2 (08:53→17:00)
[2016-07-25] MEDS: VALSARTAN 80 MG TABLET PO SCH (08:53)
[2016-07-25] MEDS: GLIMEPIRIDE 1 MG TABLET PO SCH (08:53)
[2016-07-25] MEDS: FERROUS SULFATE (325 MG) 325 MG/TAB TABLET PO SCH (08:53)
[2016-07-25] MEDS: BENZTROPINE MESYLATE (1 MG) 1 MG TABLET PO SCH ×2 (08:53→17:16)
[2016-07-25] MEDS: HALOPERIDOL 5 MG TABLET PO SCH ×4 (08:54→21:28)
[2016-07-25 16:04] VITALS: BP 130/70
[2016-07-25 20:00] VITALS: BP 148/95
[2016-07-26 08:00] VITALS: BP 120/93
[2016-07-26] MEDS: FERROUS SULFATE (325 MG) 325 MG/TAB TABLET PO SCH (09:00)
[2016-07-26] MEDS: METFORMIN 500 MG TABLET PO SCH ×3 (09:00→17:00)
[2016-07-26] MEDS: GLIMEPIRIDE 1 MG TABLET PO SCH (09:00)
[2016-07-26] MEDS: BENZTROPINE MESYLATE (1 MG) 1 MG TABLET PO SCH ×3 (09:00→17:02)
[2016-07-26] MEDS: VALSARTAN 80 MG TABLET PO SCH (09:00)
[2016-07-26] MEDS: HALOPERIDOL 5 MG TABLET PO SCH ×4 (09:16→20:24)
[2016-07-26 19:49] VITALS: BP 147/95
--- NOTE | 2016-07-27 00:21 | NUR ---
Pt has been anxious, loud, verbally abusive at times, very easily irritable, quite argumentative, & with pressured speech. He complied with his Haldol po w/o any promptings last night.
[2016-07-27 08:00] VITALS: BP 106/76
[2016-07-27] MEDS: HALOPERIDOL 5 MG TABLET PO SCH ×2 (08:15→12:02)
[2016-07-27 08:17] VITALS: BP 106/76
[2016-07-27] MEDS: BENZTROPINE MESYLATE (1 MG) 1 MG TABLET PO SCH (08:17)
[2016-07-27] MEDS: GLIMEPIRIDE 1 MG TABLET PO SCH (08:17)
[2016-07-27] MEDS: METFORMIN 500 MG TABLET PO SCH (08:17)
[2016-07-27] MEDS: FERROUS SULFATE (325 MG) 325 MG/TAB TABLET PO SCH (08:17)
[2016-07-27] MEDS: VALSARTAN 80 MG TABLET PO SCH (08:17)
--- NOTE | 2016-07-27 13:30 | NUR ---
GPS/RN PATIENT CLEARED FOR DISCHARGE TO HEALTH SYSTEM BY DR MARIEE AND JUSTO LOZA. ALL DISCHARGE PAPERWORK SIGNED BY PATIENT BELONGINGS RETURNED, D/C PACKET AND MEDICATIONS EXPLAINED TO PATIENT, VERBALIZED UNDERSTANDING.REPORT CALLED TO ALLISON AT FACILITY,PATIENT REFUSED D/C PHOTOS, PATIENT DENIES SI/HI AT TIME OF DISCHARGE, LEFT UNIT CALM, COOPERATIVE, WITH EMT AT SIDE.
--- NOTE | 2016-07-27 14:59 | NUR ---
Discharge note: discharged back to [facility] [address], [place] [address] via [facility]. Sister, Marilu Arredondo, was notified. Pt. was cooperative upon discharge, denied suicidal/homicidal ideations, mood appeared normal with flat affect. Discharge instructions were provided to the accepting facility, and the paperwork has been signed.
== END 2016-07-27 13:30 | DRG 885 ==
LOC: ER 22:51 → GPS 23:56
PROVIDERS: ADMIT Psychiatry & Neurology Psychiatry; ATTEND Internal Medicine
DX: F29 Unspecified psychosis not due to a substance or known physiological condition (principal); E11.9 Type 2 diabetes mellitus without complications; F32.9 Major depressive disorder, single episode, unspecified; I10 Essential (primary) hypertension; Z91.14 Patient's other noncompliance with medication regimen; F41.9 Anxiety disorder, unspecified; Z96.659 Presence of unspecified artificial knee joint; Z96.649 Presence of unspecified artificial hip joint; Z73.6 Limitation of activities due to disability; F20.0 Paranoid schizophrenia
CPT/HCPCS: 36415; 80048-TC; 80061-TC; 80076-TC; 80305; 81000-TC; 85025-TC; 87081-TC; 87086-TC; A4606; G0480; G6039-TC; J1200; J1610; J1630; J1631; J3490; Z7610